=== PATIENT | male | born 1995 | race Hispanic/Latino ===

== ENCOUNTER 2016-08-25 22:57 | Emergency (ER) | payer OTHER ==
[~2016-08-25 22:57] MED LIST: ZOFRAN4 M2 PO
[2016-08-25 23:26] VITALS: BP 111/69
--- NOTE | 2016-08-26 00:22 | ED GENERAL ADULT ---
History of Present Illness General Chief Complaint: Fever Stated Complaint: FEVER, CHILLS X2 DAYS Source: patient, family Exam Limitations: no limitations Vital Signs & Intake/Output Vital Signs & Intake/Output Vital Signs Date Time Temp Pulse Resp B/P Pulse O2 O2 Flow FiO2 Ox Delivery Rate 08/26 0053 99.0 08/25 2326 99.0 116 20 111/69 97 Room Air ED Intake and Output 08/26 0000 08/25 1200 Intake Total Output Total Balance Patient 119 lb Weight Allergies Coded Allergies: cheese (NAUSEA 03/16/16) Reconcile Medications Ibuprofen 800 MG TABLET 1 TAB PO Q8 PRN PAIN Ondansetron HCl (Zofran) 4 MG TABLET 1 TAB PO TID PRN NAUSEA Tramadol HCl 50 MG TABLET 1-2 TAB PO Q6 PRN pain Triage Note: PER PT ABD PAIN FEVER BODY ACHES ADVIL DAILY X 1 AT 1999. Triage Nurses Notes Reviewed? yes HPI: Patient is a 21-year-old male presents complaining of fevers, chills, body aches onset yesterday. Symptoms are moderate, mild improvement after ibuprofen, last dose was yesterday at approximately 8 PM. Symptoms improving since yesterday but continues with significant body aches which prompted him to come in for evaluation. Patient unsure if this temperature. Occasional mild cough. Patient denies nausea, vomiting, diarrhea (DENVER SIMON) Past History Travel History Traveled to [place] past 21 day No Medical History Any Pertinent Medical History? see below for history Neurological: NONE EENT: NONE Cardiovascular: NONE Respiratory: asthma Gastrointestinal: NONE Hepatic: NONE Renal: NONE Musculoskeletal: NONE Psychiatric: NONE Endocrine: hypothyroidism Surgical History Surgical History: none Psychosocial History What is your primary language Moh[place] Tobacco Use: Never used Family History Hx Contributory? No (DENVER SIMON) Review of Systems Review of Systems Constitutional: Reports: chills, fever, malaise. EENTM: Reports: no symptoms. Respiratory: Reports: cough. Denies: short of breath. Cardiovascular: Denies: chest pain. GI: Denies: abdominal pain, diarrhea, nausea, vomiting. Genitourinary: Reports: no symptoms. Musculoskeletal: Reports: muscle pain. Neurological/Psychological: Reports: headache. Hematologic/Endocrine: Denies: bruising, bleeding. Immunologic/Allergic: Denies: splenectomy. (DENVER SIMON) Physical Exam Physical Exam General Appearance: well developed/nourished, alert, awake Head: atraumatic, normal appearance Eyes: Bilateral: normal appearance, PERRL, EOMI. Ears, Nose, Throat: normal pharynx, normal ENT inspection, hearing grossly normal Neck: normal inspection, supple, full range of motion Respiratory: normal breath sounds, chest non-tender, no respiratory distress, lungs clear Cardiovascular: regular rate/rhythm (NO MURMUR) Gastrointestinal: normal bowel sounds, soft, non-tender Back: normal inspection, normal range of motion Extremities: normal inspection, normal capillary refill, normal range of motion, no edema Neurologic/Psych: no motor/sensory deficits, awake, alert, oriented x 3, normal gait, normal mood/affect Skin: intact, normal color, warm/dry Lymphatic: no anterior cervical janae Core Measures ACS in differential dx? No CVA/TIA Diagnosis: No Severe Sepsis Present: No Septic Shock Present: No (DENVER SIMON) Progress Differential Diagnoses I considered the following diagnoses in my evaluation of the patient: influenza, viral URI, intra-abdominal infection, pneumonia Plan of Care: Orders Procedure Date/time Status RAPID VIRAL INFLUENZA A 08/26 30 Complete Patient nontoxic appearing, no focal abdominal tenderness on exam, lungs clear throughout. Bloodwork and imaging deferred secondary to exam. (DENVER SIMON) Initial ED EKG: none (DENVER SIMON) Departure Departure Disposition: HOME OR SELF CARE Condition: Stable Clinical Impression Primary Impression: Viral syndrome Referrals: JUAN DANG MD (PCP/Family) Referred to [facility] as new patient No Additional Instructions: Follow-up with her primary care doctor this week for further evaluation. Return to the emergency department if worsening symptoms. Departure Forms: Customer Survey General Discharge Information Prescriptions: Current Visit Scripts Ibuprofen 1 TAB PO Q8 PRN PAIN #20 TAB Tramadol HCl 1-2 TAB PO Q6 PRN pain #15 TAB (DENVER SIMON) PA/[employer] Co-Sign Statement Statement: ED Attending supervision documentation- [] I saw and evaluated the patient. I have also reviewed all the pertinent lab results and diagnostic results. I agree with the findings and the plan of care as documented in the PA's/[employer]'s documentation. x] I have reviewed the ED Record and agree with the PA's/[employer]'s documentation. [] Additions or exceptions (if any) to the PAs/[employer]'s note and plan are summarized below: [] (ROMINA BLAND,CHING Fragoso) Critical Care Note Critical Care Note Critical Care Time: non-applicable (GATO WORRELL,DENVER)
[2016-08-26] MEDS ORDERED: IBUPROFEN800 M1 PO (01:20)
[2016-08-26] MEDS ORDERED: TRAMADOL HCL50 M1 PO (01:20)
== END 2016-08-26 01:37 ==
LOC: ERH 22:57
DX: B34.9 Viral infection, unspecified (principal)
CPT/HCPCS: 87804; 87804-59